=== PATIENT | male | born 1945 | race Caucasian/White ===

== ENCOUNTER → 2017-02-22 | Outpatient (CLI) | payer OTHER ==
[~2017-02-22] MED LIST: ALPH200C2 PO; CALCTAB5 PO; CHOL1000 PO; CHOL100010 PO; COEN90TA PO; EFF/375 PO; HYDR25TA4 PO; LORA10TA5 PO; METO-551 PO; MULT-513 PO; OMEG10007 PO; OMEP20TA PO; PROB1TAB16 PO; PSYL55.43 PO; TADA10TA PO; VITA400C15 PO; lupron; vitamin E
[2017-02-22 13:22] VITALS: BP 123/80; PULSE 81; TEMP 36.6; O2SAT 93
--- NOTE | 2017-02-22 14:20 | Radiation Oncology Follow-Up ---
Radiation Oncology Follow-Up Date of Visit Feb 22, 2017. (Li Max PA-C) Reason For Visit 6 month follow-up (Li Max PA-C) Radiation Completion Date 06/18/15 (Li Max PA-C) Diagnosis (1) Prostate cancer Status: Resolved Onset Date: 04/15/2015 Permanent Comment: Prostate, adenocarcinoma, annita 4 + 4, PSA 21.0, cT1c, group IIB Status post prostatectomy 06/18/2015 Stage pT3 [id number] Extracapsular extension, perineural invasion [place] 4+5 Hormone suppression Status post completion of radiation therapy 02/01/2016 received 7020 cGy Last Edited By: Li Max on Mar 10, 2016 14:38 (Li Max PA-C) History of Present Illness Mr. Hidalgo is a 71 year old male who presented with an elevated PSA since 2013 and has had several negative prostate biopsies including his most recent biopsy in January [address] Perdomo. He has been monitored by PSA, his PSA was 22.3 in August 2014, 24.8 in September 2014, 27.9 in December 2014 and 21 on 04/07/2015. The patient was referred from Dr. Perdomo to Dr. Batista who did complete a transrectal ultrasound guided biopsy on 04/15/2015. There were 2/14 positive biopsy results. [place] 4 + 4 disease was found in the right base and left mid gland. The tumor involved 20% of the right base and 10% of the left mid biopsies. The patient did have a CT abdomen and pelvis completed on which was negative for metastatic disease in pelvic lymph nodes and also had a bone scan completed on 2014 which was negative for metastatic disease. The patient discussed treatment options with Dr. Batista and has elected for robotic radical prostatectomy and pelvic lymph node sampling with consideration of adjuvant radiation therapy. We are now seeing the patient in consultation for discussion of radiation therapy. He underwent with the robotic prostatectomy 06/18/2015. The [place] was 4+5. There was extraprostatic extension. There was no lymphovascular invasion. There was perineural invasion. He was staged pT3 bN1. He steadily improved postoperatively and was referred back to our office for adjuvant radiation therapy. The decision was to treat with hormone suppression followed by radiation therapy to the prostate bed and lymph nodes. Radiation was completed 2015 he received 7020 cGy (Li Max PA-C) Interim History He is doing well from urinary standpoint. His AUA score was 4. At his last visit the AUA score was 6. He completed expanded prostate cancer index composite for clinical practice and gave a score of one of 12 and urinary incontinence symptoms. He gave a score 0 of 12 and urinary irritation symptoms. He gave a score of 0 of 12 bowel symptoms. He was score of 9 of 12 and sexual symptoms. He gave a score of 6 of 12 and hormonal vitality symptoms. His total was 16 of 60. He understands that the main cause of these issues is the Lupron. He has continued on hormone suppression. He stated that he was told that he will have 1 or 2 more injections. He did have significant hot flashes. He was started on Effexor. This unfortunately had a side effect of fatigue and he therefore discontinued the medication. His last Lupron injection was 12/26/2016. He has been receiving 30 mg injections. He had a PSA that was 0.0 on 12/22/2016. (Li Max PA-C) Allergies Coded Allergies: Statins (Verified Adverse Reaction, Unknown, myalgias, HEADACHES, 06/18/15) Home Medications Scheduled Alpha-Lipoic Acid (Thioctic Ac (Alpha Lipoic Acid), 1 CAP PO DAILY Calcium (Caltrate), 600 MG PO DAILY Cholecalciferol (Vitamin D3), 1 TAB PO DAILY Coenzyme Q10 (Ubidecarenone) (Co Q10), 1 TAB PO DAILY Fish Oil ([place]-3), 1 CAP PO DAILY Hydrochlorothiazide (Hctz), 1 TAB PO QAM Metoprolol Tartrate (Lopressor), 1 TAB PO BID Multivitamins/Minerals (Mvi With Minerals), 1 TAB PO DAILY Probiotic Product (Probiotic), 1 TAB PO QAM Psyllium (Metamucil Powder), 1 PACK PO QAM Tadalafil (Cialis), 20 MG PO UD Tocopheryl Acet,Dl-Alpha (Vitamin E), 400 INTER.UNIT PO DAILY [lupron], DIRECTED [vitamin E], 1 CAP DAILY Scheduled PRN Loratadine (Claritin), 10 MG PO DAILY PRN for allergies Omeprazole (Omeprazole), 1 TAB PO DAILY PRN for reflux Review of Systems Gastrointestinal: Symptoms: Rectal Bleeding GI Comments: occ rectal bleeding from hemorrhoids per patient Oral: Symptoms: No Problems Respiratory: Symptoms: WNL Urinary: Symptoms: Nocturia Comments: nocturiax2 Skin: Symptoms: No Problems (Li Max PA-C) Physical Exam Vital Signs Date Time Temp Pulse Resp B/P (MAP) Pulse Ox O2 Delivery O2 Flow Rate FiO2 02/22/17 13:22 36.6 81 20 123/80 93 Fatigue: None General Appearance: no apparent distress Eyes: normal inspection, EOMI ENT: normal ENT inspection, hearing grossly normal Respiratory/Chest: lungs clear, no respiratory distress, no accessory muscle use Cardiovascular: regular rate, rhythm, no gallop, no murmur Abdomen: non tender, soft Extremities: no pedal edema Neurologic/Psychiatric: no motor/sensory deficits, alert, normal mood/affect Skin: warm/dry (Li Max PA-C) Laboratory Studies PSA 12/22/2016 was 0.0. (Li Max PA-C) Assessment & Plan Plan: The patient is also seen today by Dr. Peters. He is continuing on the hormone suppression. He will continue follow-up and recheck PSAs. He follows with him at the [place] office. We asked him to return to our office in 1 year. We did review that he is taking calcium and vitamin D. We'll plan to recheck a DEXA scan next year. He may call if he has any questions or concerns in the interim. (Li Max PA-C) I agree with note created by Li Max PA-C. I reviewed the patient's chart and information with her. I have examined and evaluated the patient. I reviewed relevant clinical information and answered the patient's and/or family' s questions. (Veeral. Peters MD) Total Time In Follow-Up I spent 20 minutes speaking to the patient performing examination. I spent 15 minutes reviewing information in completing this note. (Li Max PA-C) I spent 15 minutes examining and counseling the patient. (Veeral. Peters MD) Copy To Markie Batista MD, Urology; Crow Brandon D.O.
== END | disposition home or self-care (01) ==
LOC: C.ONC 13:04
PROVIDERS: ATTEND Physician Assistant Medical
DX: Z08 Encounter for follow-up examination after completed treatment for malignant neoplasm (principal); Z92.3 Personal history of irradiation; Z85.46 Personal history of malignant neoplasm of prostate